=== PATIENT | male | born 1970 | race Caucasian/White ===

== ENCOUNTER 2017-02-16 17:47 | Emergency (ER) | payer MEDICARE ==
[~2017-02-16] VITALS: Ht 188 cm; Wt 94.1 kg
[2017-02-16 19:40] VITALS: BP 109/66
== END 2017-02-16 20:05 | disposition home or self-care (01) ==
LOC: ED 18:00
DX: F32.0 Major depressive disorder, single episode, mild (principal); F12.10 Cannabis abuse, uncomplicated; F15.10 Other stimulant abuse, uncomplicated; F14.10 Cocaine abuse, uncomplicated; B35.6 Tinea cruris; Z72.89 Other problems related to lifestyle; F20.9 Schizophrenia, unspecified
CPT/HCPCS: 99284

== ENCOUNTER 2019-03-10 02:42 | Emergency (ER) | payer SELFPAY ==
[~2019-03-10] VITALS: Ht 182.9 cm; Wt 82.2 kg
[2019-03-10 02:45] VITALS: BP 135/81
--- NOTE | 2019-03-10 03:06 | NUR ---
MD AT BEDSIDE TO ASSESS PT
--- NOTE | 2019-03-10 03:06 | NUR ---
THIS IS A 48Y M THAT COMES IN TONIGHT FOR BILAT FEET PAIN, PT STS HE WAS WALKING UP AND DOWN THE HILL WITH HIS FRIENDS AND COULDN'T FIGURE OUT WHERE TO GO AND HIS FEET STARTED HURTING. PT IS VERY RESTLESS AND HIS STORY IS NOT CONSISTENT BETWEEN PROVIDERS. PT RESTING ON GURNEY AT THIS POINT. JAYNE
[2019-03-10] MEDS ORDERED: IBUPROFEN 800 MG TABLET PO ONE (03:30)
== END 2019-03-10 03:31 | disposition home or self-care (01) ==
LOC: ED 03:25
DX: B35.3 Tinea pedis (principal); M79.662 Pain in left lower leg; M79.661 Pain in right lower leg; F15.129 Other stimulant abuse with intoxication, unspecified; F17.200 Nicotine dependence, unspecified, uncomplicated; Z72.9 Problem related to lifestyle, unspecified; Z91.14 Patient's other noncompliance with medication regimen; Z75.9 Unspecified problem related to medical facilities and other health care; Z63.8 Other specified problems related to primary support group
CPT/HCPCS: 99282

== ENCOUNTER 2019-12-30 23:49 | Emergency (ER) | payer SELFPAY ==
--- NOTE | 2019-12-30 23:59 | NUR ---
PER REGISTRATION, PATIENT LEFT LOBBY
== END 2019-12-31 00:06 | disposition left against medical advice (07) ==
LOC: ED 23:55
DX: F29 Unspecified psychosis not due to a substance or known physiological condition (principal); Z53.21 Procedure and treatment not carried out due to patient leaving prior to being seen by health care provider